=== PATIENT | male | born 1945 | race American Indian/Alaskan Native ===

== ENCOUNTER 2019-03-04 12:51 | Inpatient (IN) | payer MEDICARE ==
[2019-02-25 13:14] LABS: Basophils % (Auto) 0.6 % (0.0-1.8); Eosinophils # (Auto) 0.3 K/mm3 (0.0-0.4); Hematocrit 42.8 % (35.5-45.6); Hemoglobin 14.2 gm/dl (11.8-15.2); Lymphocytes # (Auto) 1.2 K/mm3 (1.2-5.4); Lymphocytes % (Auto) 23.1 % (13.4-35.0); Mean Corpuscular HGB Conc 33 % (32-34); Mean Corpuscular Volume 86 fl (84-94); Monocytes # (Auto) 0.5 K/mm3 (0.0-0.8); Monocytes % (Auto) 9.6 % (0.0-7.3); Platelet Count 220 K/mm3 (140-440); Red Blood Count 4.97 M/mm3 (3.65-5.03); Red Cell Distribution Width 14.1 % (13.2-15.2)
[2019-02-25 13:23] LABS: INR 1.09 (0.87-1.13)
[2019-02-25 13:24] LABS: Partial Thromboplastin Time 28.6 Sec. (24.2-36.6)
[2019-02-25 13:28] LABS: Alanine Aminotransferase 13 units/L (7-56); Albumin 3.6 g/dL (3.9-5); BUN/Creatinine Ratio 16; Blood Urea Nitrogen 16 mg/dL (9-20); Calcium 8.4 mg/dL (8.4-10.2); Hemolysis Index 33
--- NOTE | 2019-02-25 13:42 | Anesthesia Consultation ---
Anesthesia Consult and Med Hx Date of service: 03/04/19 - Airway Anesthetic Teeth Evaluation: Good ROM Head & Neck: Inadequate (limited neck extension) Mental/Hyoid Distance: Adequate Mallampati Class: Class I Intubation Access Assessment: Possibly Difficult - Pulmonary Exam CTA: Yes - Cardiac Exam Cardiac Exam: RRR - Pre-Operative Health Status ASA Pre-Surgery Classification: ASA2 Proposed Anesthetic Plan: General - Pulmonary Hx Smoking: Yes (former smoker) Hx Respiratory Symptoms: No Hx Sleep Apnea: No (COBY PRE SCREEN LOW RISK) - Cardiovascular System Hx Hypertension: No Hx Heart Attack/AMI: No Hx Percutaneous Transluminal Coronary Angioplasty (PTCA): No - Central Nervous System CVA: No - Gastrointestinal Hx Gastroesophageal Reflux Disease: No - Endocrine Hx Renal Disease: No Hx Liver Disease: No Hx Insulin Dependent Diabetes: No Hx Non-Insulin Dependent Diabetes: No Hx Thyroid Disease: No - Hematic Hx Anemia: No - Other Systems Hx Obesity: Yes - Additional Comments Anesthesia Medical History Comments: No hx anesthetic complications.
[~2019-03-04 12:51] MED LIST: LACTATED RINGERS 1,000 ML IV SCH; ceFAZolin/STERILE WATER 2 GM/20 ML SYRINGE IV NR
[2019-03-04] MEDS ORDERED: ONDANSETRON 4 MG/2 ML INJ IV PRN ×2 (13:40→16:04)
--- NOTE | 2019-03-04 13:41 | Anesthesia Day of Surgery ---
Anesthesia Day of Surgery - Day of Surgery Patient Examined: Yes Patient H&P Reviewed: Yes Patient is NPO: Yes
[2019-03-04] MEDS ORDERED: LIDOCAINE PF 100 MG/5 ML (CARDIAC SYRINGE) IV ONE (14:55)
[2019-03-04] MEDS ORDERED: fentaNYL 100 MCG/2 ML INJ ONE ×2 (14:56→17:00)
[2019-03-04] MEDS ORDERED: PROPOFOL 200 MG/20 ML VIAL IV ONE (14:56)
[2019-03-04] MEDS ORDERED: MIDAZOLAM 2 MG/2 ML INJ ONE (14:56)
[2019-03-04] MEDS ORDERED: SODIUM CHLORIDE 0.9% IRRIG SOLN 3000 ML IR ONE ×2 (15:23)
[2019-03-04] MEDS ORDERED: HYDROcodone/ACETAMINOPHEN 5-325 MG TAB PO PRN (16:04)
[2019-03-04] MEDS ORDERED: NALOXONE 0.4 MG/1 ML INJ IV PRN (16:04)
[2019-03-04] MEDS ORDERED: ZOLPIDEM 5 MG TAB PO PRN (16:04)
--- NOTE | 2019-03-04 16:04 | Short Stay Summary ---
Short Stay Documentation Date of service: 02/25/19 - History H&P: obtained from office - Allergies and Medications Current Medications: Allergies No Known Allergies Allergy (Verified 02/19/19 14:21) Home Medications Medication Instructions Recorded Confirmed Last Taken Type Finasteride [Proscar] 5 mg PO DAILY 02/19/19 02/19/19 03/03/19 18:00 History Tamsulosin [Flomax] 0.4 mg PO QDAY 02/19/19 02/19/19 03/03/19 18:00 History Active Medications Cefazolin Sodium (Ancef/Sterile Water 2 Gm/20 Ml) 2 gm IV PREOP NR Stop: 03/04/19 23:02 Fentanyl (Sublimaze) 50 mcg IV Q5MIN PRN PRN Reason: Pain , Severe (7-10) Stop: 03/04/19 23:59 Lactated Ringer's (Lactated Ringers) 1,000 mls @ 100 mls/hr IV DIRECT DESTIN Last Admin: 03/04/19 14:00 Dose: 100 mls/hr Documented by: Ondansetron HCl (Zofran) 4 mg IV ONCE PRN PRN Reason: Nausea And Vomiting - Brief post op/procedure progress note Date of procedure: 03/04/19 Pre-op diagnosis: bph, retention, elevated PSA Post-op diagnosis: same Procedure: cysto, TURP, digital guided transrectal prostate bx Anesthesia: GETA Surgeon: MORENITA FIGUEROA Estimated blood loss: 50-100ml Pathology: list (prostate chips / prostate cores) Specimen disposition: to lab Condition: stable - Hospital course Hospital course: bactrm & norco on chart - Disposition Condition at discharge: Stable Disposition: DC-01 TO HOME OR SELFCARE Short Stay Discharge Plan Follow up with: PRIMARY CARE, [Primary Care Provider] - 7 Days
[2019-03-04] MEDS: fentaNYL 100 MCG/2 ML INJ IV PRN ×3 (16:30→16:55)
[2019-03-04] MEDS ORDERED: ceFAZolin/NS 1 GM/50 ML 1 GM/50 ML BAG IV SCH (17:00)
[2019-03-04] MEDS ORDERED: SODIUM CHLORIDE IRRI 2000 ML 4,000 ML ONE (17:29)
[2019-03-04] MEDS: MORPHINE 2 MG/1 ML INJ IV PRN (20:09)
--- NOTE | 2019-03-04 21:09 | Post Anesthesia Evaluation ---
- Post Anesthesia Evaluation Patient Participated: Yes Airway Patent: Yes Stable Respiratory Function: Yes Nausea/Vomiting: No Temp > 96.8F: Yes Pain Manageable: Yes Adequeate Hydration: Yes Anesthesia Complications: No Block Receding Appropriately: Not Applicable Patient on Ventilator: No
[2019-03-04] MEDS: ceFAZolin/NS 1 GM/50 ML 1 GM/50 ML BAG IV SCH (22:00)
[2019-03-05 05:18] LABS: Basophils % (Auto) 0.5 % (0.0-1.8); Eosinophils # (Auto) 0.2 K/mm3 (0.0-0.4); Eosinophils % (Auto) 2.7 % (0.0-4.3); Hematocrit 36.4 % (35.5-45.6); Hemoglobin 11.9 gm/dl (11.8-15.2); Lymphocytes # (Auto) 1.6 K/mm3 (1.2-5.4); Lymphocytes % (Auto) 17.9 % (13.4-35.0); Mean Corpuscular HGB Conc 33 % (32-34); Mean Corpuscular Volume 85 fl (84-94); Monocytes # (Auto) 1.1 K/mm3 (0.0-0.8); Platelet Count 216 K/mm3 (140-440); Red Blood Count 4.28 M/mm3 (3.65-5.03); Red Cell Distribution Width 13.7 % (13.2-15.2)
[2019-03-05 05:31] LABS: BUN/Creatinine Ratio 15; Blood Urea Nitrogen 15 mg/dL (9-20); Calcium 7.9 mg/dL (8.4-10.2); Hemolysis Index 2
[2019-03-05] MEDS: ceFAZolin/NS 1 GM/50 ML 1 GM/50 ML BAG IV SCH (05:48)
[2019-03-05] MEDS: FINASTERIDE 5 MG TAB PO SCH (09:45)
[2019-03-05] MEDS: TAMSULOSIN 0.4 MG CAP PO SCH (09:45)
[2019-03-05] MEDS: SODIUM CHLORIDE 0.9% IRRIG SOLN 2000 ML IR SCH ×8 (09:48→21:06)
--- NOTE | 2019-03-05 11:42 | Progress Note ---
Assessment and Plan irwin min tinged needs to get oob irrigate cath observe Subjective Date of service: 03/05/19 Objective - Constitutional Vitals: Vital Signs - 12hr 03/05/19 03/05/19 03/05/19 04:27 07:08 11:26 Temperature 99.3 F 98.4 F 98.9 F Pulse Rate 83 76 80 Respiratory 18 18 18 Rate Blood Pressure 108/55 111/62 Blood Pressure 121/77 [Right] O2 Sat by Pulse 98 99 99 Oximetry General appearance: Present: no acute distress Extremities: no ischemia - Gastrointestinal General gastrointestinal: Present: soft - Labs CBC & Chem 7: 03/05/19 04:16 03/05/19 04:16 Labs: Abnormal lab results 03/05/19 03/05/19 Range/Units 04:16 04:16 [place] % (Auto) 12.0 H (0.0-7.3) % [place] # 1.1 H (0.0-0.8) K/mm3 Glucose 105 H (75-100) mg/dL Calcium 7.9 L (8.4-10.2) mg/dL Medications & Allergies - Medications Allergies/Adverse Reactions: Allergies No Known Allergies Allergy (Verified 02/19/19 14:21) Home Medications: Home Medications Medication Instructions Recorded Confirmed Last Taken Type Finasteride [Proscar] 5 mg PO DAILY 02/19/19 02/19/19 03/03/19 18:00 History Tamsulosin [Flomax] 0.4 mg PO QDAY 02/19/19 02/19/19 03/03/19 18:00 History Active Medications: Generic Name Dose Route Start Last Admin Trade Name Gautam PRN Reason Stop Dose Admin Acetaminophen/Hydrocodone Bitart 2 each 03/04/19 16:04 [place] 5/325 PO Q4H PRN Pain, Moderate (4-6) Finasteride 5 mg 03/05/19 10:00 03/05/19 09:45 Proscar PO 5 mg DAILY DESTIN Administration Lactated Ringer's 1,000 mls @ 100 mls/hr 03/04/19 06:00 03/04/19 14:00 Lactated Ringers IV 100 mls/hr DIRECT DESTIN Administration Lactated Ringer's 1,000 mls @ 125 mls/hr 03/04/19 17:00 Lactated Ringers IV DIRECT DESTIN Morphine Sulfate 2 mg 09/18/19 16:04 03/04/19 20:09 Morphine IV 2 mg Q4H PRN Administration Pain, Moderate (4-6) Naloxone HCl 0.1 mg 03/04/19 16:04 Narcan 0.4 Mg/1 Ml IV Q2MIN PRN Res Rate </= 8 or 02 SAT < 92% Ondansetron HCl 4 mg 03/04/19 13:40 Zofran IV ONCE PRN Nausea And Vomiting Ondansetron HCl 4 mg 03/04/19 16:04 Zofran IV Q8H PRN Nausea And Vomiting Sodium Chloride 2,000 ml 03/04/19 17:00 03/05/19 09:49 Nacl 0.9% IR 2,000 ml DIRECT DESTIN Administration Tamsulosin HCl 0.4 mg 03/05/19 10:00 03/05/19 09:45 Flomax PO 0.4 mg QDAY DESTIN Administration Zolpidem Tartrate 5 mg 03/04/19 16:04 Ambien PO QHS PRN Sleep
[2019-03-05] MEDS ORDERED: SODIUM CHLORIDE IRRI 1000 ML 1,000 ML IR ONE (11:59)
[2019-03-05] MEDS: MORPHINE 2 MG/1 ML INJ IV PRN (12:44)
[2019-03-05] MEDS: LACTATED RINGERS 1,000 ML IV SCH (20:50)
[2019-03-06] MEDS: SODIUM CHLORIDE 0.9% IRRIG SOLN 2000 ML IR SCH ×6 (00:02→06:41)
[2019-03-06] MEDS: LACTATED RINGERS 1,000 ML IV SCH (06:07)
[2019-03-06 10:31] VITALS: BP 107/65
[2019-03-06] MEDS: FINASTERIDE 5 MG TAB PO SCH (10:36)
[2019-03-06] MEDS: TAMSULOSIN 0.4 MG CAP PO SCH (10:36)
--- NOTE | 2019-03-06 12:56 | Discharge Summary ---
Providers - Providers Date of Admission: 03/05/19 16:13 Date of discharge: 03/06/19 Attending physician: MORENITA RAMOS Primary care physician: RM TSAI Hospitalization Condition: Stable Procedures: TURP Hospital course: TURP----Dr. Ramos post hematuria & pain-----monitored better at bedside Disposition: DC-01 TO HOME OR SELFCARE Core Measure Documentation - Palliative Care Palliative Care/ Comfort Measures: Not Applicable - Core Measures Any of the following diagnoses?: none - VTE Discharge Requirements Deep Vein Thrombosis/Pulmonary Embolism Present on Admission: No Has pt received <5 days of overlap therapy or INR<2.0: No Anticoagulant overlap therapy prescribed at discharge: No Contraindication No Overlap Therapy order at DC: Medical Contraindication - Acute [place] Discharge Requirements Aspirin at discharge: No Reason for no aspirin on DC: Surgical contraindication JUAN/ARB for LVSD if EF <40%: No Reason for no JUAN/ARB: Medical contraindication Beta efren at discharge: No Reason for no beta efren on DC: Medical contraindication Statin for LDL = or >100 mg/dl on DC: Not Applicable Reason for no statin on DC: Surgical contraindication - Heart Failure Discharge Requirements JUAN/ARB for LVSD if EF <40%: Not Applicable Reason for no JUAN/ARB: Medical contraindication Beta efren at discharge: No Reason for no beta efren on DC: Medical contraindication - Stroke Discharge Requirements Statin for LDL = or >70 mg/dl on DC: Not Applicable Reason for no statin on DC: Medical Contraindication Anticoag for atrial fib/atrial flutter: Not Applicable Reason for no anticoag for AF/F on DC: Medical Contraindication Antithrombotic for ischemic stroke: No Reason for no antithrombotic on DC: Medical Contraindication Exam - Constitutional Vitals: Temp Pulse Resp BP Pulse Ox 99.0 F 98 H 18 107/65 98 03/06/19 10:26 03/06/19 10:26 03/06/19 10:26 03/06/19 10:26 03/06/19 10:26 General appearance: Present: no acute distress, well-nourished - EENT Eyes: Present: PERRL ENT: hearing intact, clear oral mucosa - Neck Neck: Present: supple, normal ROM - Respiratory Respiratory effort: normal Respiratory: bilateral: CTA - Cardiovascular Heart Sounds: Present: S1 & S2. Absent: rub, click - Extremities Extremities: pulses symmetrical, No edema Peripheral Pulses: within normal limits - Abdominal General gastrointestinal: Present: soft, non-tender, non-distended, normal bowel sounds Male genitourinary: Present: normal - Integumentary Integumentary: Present: clear, warm, dry - Musculoskeletal Musculoskeletal: gait normal, strength equal bilaterally - Psychiatric Psychiatric: appropriate mood/affect, intact judgment & insight - Neurologic Neurologic: CNII-XII intact, moves all extremities Plan Activity: no restrictions Diet: regular Follow up with: PRIMARY CARE, [Referring] - 7 Days
--- NOTE | 2019-03-16 12:36 | Operative Report ---
PREOPERATIVE DIAGNOSES: Benign prostatic hypertrophy, urinary retention. POSTOPERATIVE DIAGNOSES: Benign prostatic hypertrophy, urinary retention and elevated PSA. PROCEDURE: Cystoscopy, bilateral retrograde pyelograms, transurethral resection of the prostate. SURGEON: Karl Ramos MD ANESTHESIA: General. ESTIMATED BLOOD LOSS: Minimal. FLUIDS: Crystalloid. COMPLICATIONS: No complications. INDICATIONS: This patient is a 73-year-old gentleman known to my office for urinary retention. [place] He had previous prostate biopsy in the past, developed urinary retention, failed voiding trial in the office and presents now for surgical intervention. DESCRIPTION OF PROCEDURE: The patient was taken to the operative suite, placed in the supine position. After adequate general anesthesia, placed in the dorsal lithotomy position, prepped and draped in a sterile fashion. Pancystourethroscopy was performed with 22-Tajik Storz cystoscope, no urethral abnormalities. His prostate displayed trilobar obstruction. Bladder, no tumors or stones were noted. Bilateral retrograde pyelograms were obtained with an 8-Tajik Braden catheter and 8 mL of contrast. No filling defects or obstruction. Next, using a 24-Tajik resectoscope in loop with the cutting and coag 160 and 60 transurethral resection of the prostate was performed in a systematic fashion, taken down the median lobe, right and left lateral lobes. Chips were evacuated out with the Celletra evacuator. Also, he was noted to have elevated PSA. Therefore, digital-guided transrectal biopsies were obtained and sent for routine pathologic evaluation. A 23-Tajik 3-way catheter to Maciel's drip was placed, irrigated well, no chips. He was extubated and taken to recovery room in stable condition. JOB# [id number] [facility]
== END 2019-03-06 15:00 | disposition home or self-care (01) | DRG 714 ==
LOC: OR 12:51 → 3B-SURG 16:04 → OBSVTOIN 03-05 16:13
PROVIDERS: ADMIT Urology; ATTEND Urology
PROC: 0VT08ZZ Resection of Prostate, Via Natural or Artificial Opening Endoscopic (ICD-10-PCS; principal; 2019-03-04)
PROC: 0TJB8ZZ Inspection of Bladder, Via Natural or Artificial Opening Endoscopic (ICD-10-PCS; 2019-03-04)
PROC: 0VB08ZX Excision of Prostate, Via Natural or Artificial Opening Endoscopic, Diagnostic (ICD-10-PCS; 2019-03-04)
DX: N40.1 Benign prostatic hyperplasia with lower urinary tract symptoms (principal); R33.8 Other retention of urine; N52.9 Male erectile dysfunction, unspecified; I10 Essential (primary) hypertension; E66.9 Obesity, unspecified; Z87.891 Personal history of nicotine dependence; Z68.32 Body mass index [BMI] 32.0-32.9, adult; Z71.3 Dietary counseling and surveillance
CPT/HCPCS: 36415; 80048; 80053; 85025; 85610; 85730; 86850; 86900; 86901; 88305; G0378; A4217; J0690; J2001; J2250; J2270; J2704; J3010; J7120

== ENCOUNTER 2019-03-09 17:01 | Inpatient (IN) | payer MEDICARE ==
[2019-03-09] MEDS ORDERED: SODIUM CHLORIDE 0.9% 500 ML 500 ML IV ONE (17:22)
--- NOTE | 2019-03-09 17:32 | Event Note ---
ED Screening Note ED Screening Note: pt had a TURP on 03/[address] Ramos had his flaherty catheter removed today began to have tremors and fever once he returned home today This initial assessment/diagnostic orders/clinical plan/treatment(s) is/are subject to change based on patients health status, clinical progression and re- assessment by fellow clinical providers in the ED. Further treatment and workup at subsequent clinical providers discretion. Patient/guardian urged not to elope from the ED as their condition may be serious if not clinically assessed and managed. Initial orders include: sepsis protocol initiated in triage, febrile and tachycardia SENT TO MAIN
[2019-03-09 18:03] LABS: Hemoglobin 11.9 gm/dl (11.8-15.2); Mean Corpuscular HGB Conc 33 % (32-34); Mean Corpuscular Volume 86 fl (84-94); Platelet Count 258 K/mm3 (140-440); Red Blood Count 4.19 M/mm3 (3.65-5.03); Red Cell Distribution Width 14.1 % (13.2-15.2)
--- NOTE | 2019-03-09 18:10 | XRay Report ---
CHEST 1 VIEW INDICATION: possible Sepsis COMPARISON: None FINDINGS: Support devices: None Heart: Normal Lungs/Pleura: No acute pulmonary or pleural findings. IMPRESSION: 1. No acute disease. Signer Name: Jamir Mar MD Signed: 03/09/2019 6:06 PM Workstation Name: [id number]
[2019-03-09 18:21] LABS: Alanine Aminotransferase 13 units/L (7-56); Albumin 3.2 g/dL (3.9-5); BUN/Creatinine Ratio 12; Blood Urea Nitrogen 14 mg/dL (9-20); Calcium 8.2 mg/dL (8.4-10.2); Hemolysis Index 39
[2019-03-09 18:37] LABS: INR 1.08 (0.87-1.13)
[2019-03-09] MEDS ORDERED: SODIUM CHLORIDE 0.9% 1000 ML 1,000 ML IV ONE ×2 (18:46→21:23)
[2019-03-09] MEDS ORDERED: cefTRIAXone/NS 1 GM/50 ML 1 GM/50 ML BAG IV ONE (18:46)
[2019-03-09] MEDS ORDERED: ACETAMINOPHEN 325 MG TAB PO ONE (18:47)
[2019-03-09 18:49] LABS: Basophils % (Manual) 0 % (0.0-1.8); Eosinophils % (Manual) 0 % (0.0-4.3); Large Platelets 1+; RBC Morphology Normal; Total Cells Counted 100
[2019-03-09 18:50] LABS: Platelet Estimate Consistent w Auto
--- NOTE | 2019-03-09 19:05 | Emergency Department Report ---
ED Fever HPI - General Chief Complaint: Fever Stated Complaint: HIGH TEMP/SHAKING Time Seen by Provider: 03/09/19 17:31 Source: patient, family Exam Limitations: no limitations - History of Present Illness Initial Comments: 73-year-old male presents to the hospital with his at the bedside complaining of fever and chills/Rigors times one day. Patient has a history of BPH and recently had a TURP procedure done and was discharged from the hospital 2 days ago. Patient was discharged on unknown antibiotic twice a day. It appears that patient was treated with Bactrim and [place] while in the hospital. Last dose of antibiotic this morning. Patient follow-up in the office and have his Rueda removed by Dr. Ramos. Patient states he urinated out half the volume that was placed in the Rueda catheter prior to removal. Patient has had 2 episodes of urination today since Rueda catheter has been removed. He denies any pain or suprapubic pressure. Patient denies nausea, vomiting, diarrhea, or cough. ED Review of Systems ROS: Stated complaint: HIGH TEMP/SHAKING Other details as noted in HPI Comment: All other systems reviewed and negative ED Past Medical Hx - Past Medical History Hx Hypertension: No Hx Heart Attack/AMI: No Hx Liver Disease: No Hx Renal Disease: No Hx Tuberculosis: Yes (POSITIVE SKIN TEST,NO TX,NEG CXR 10 YRS AGO) Hx HIV: No - Social History Smoking Status: Unknown if ever smoked Substance Use Type: None - Medications Home Medications: Home Medications Medication Instructions Recorded Confirmed Last Taken Type Finasteride [Proscar] 5 mg PO DAILY 02/19/19 02/19/19 03/03/19 18:00 History Tamsulosin [Flomax] 0.4 mg PO QDAY 02/19/19 02/19/19 03/03/19 18:00 History ED Physical Exam - General Limitations: No Limitations - Other Other exam information: Gen.: No acute distress Head: Atraumatic Eyes: Normal appearance ENT: Moist mucous membranes Neck: Normal appearance, no posterior midline tenderness, no meningismus Chest: Clear to auscultation bilaterally Cardiovascular: Tachycardic regular rhythm Abdomen: Normal appearance, soft, nontender, no rebound or guarding, normal bowel sounds : Uncircumcised, no testicular or epididymis tenderness on exam. Back: Normal appearance, nontender Extremity: Full range of motion, normal appearance Neuro: Alert, clear speech, no focal motor or sensory deficit Psychiatric: Appropriate Skin: No rash ED Course Vital Signs 03/09/19 03/09/19 03/09/19 17:23 17:31 18:31 Temperature 100.6 F H 100.6 F H Pulse Rate 132 H 132 H Respiratory 18 18 17 Rate Blood Pressure 101/58 Blood Pressure 101/58 [Right] O2 Sat by Pulse 96 96 Oximetry 03/09/19 03/09/19 03/09/19 18:45 19:01 19:15 Temperature Pulse Rate 122 H 123 H 126 H Respiratory 16 21 14 Rate Blood Pressure 115/60 115/60 115/60 Blood Pressure [Right] O2 Sat by Pulse 99 98 97 Oximetry 03/09/19 03/09/19 03/09/19 19:31 19:45 20:01 Temperature Pulse Rate 122 H 120 H 119 H Respiratory 17 18 14 Rate Blood Pressure 115/60 115/60 115/60 Blood Pressure [Right] O2 Sat by Pulse 98 96 95 Oximetry 03/09/19 03/09/19 03/09/19 20:15 20:30 20:45 Temperature Pulse Rate 121 H 115 H 114 H Respiratory 18 21 20 Rate Blood Pressure 115/60 103/51 103/51 Blood Pressure [Right] O2 Sat by Pulse 94 94 96 Oximetry 03/09/19 03/09/19 03/09/19 21:00 21:15 21:31 Temperature Pulse Rate 111 H 109 H 110 H Respiratory 20 20 17 Rate Blood Pressure 98/50 98/50 100/57 Blood Pressure [Right] O2 Sat by Pulse 95 96 98 Oximetry 03/09/19 21:38 Temperature 99.0 F Pulse Rate Respiratory Rate Blood Pressure Blood Pressure [Right] O2 Sat by Pulse Oximetry - Reevaluation(s) Reevaluation #1: 03/09/19 21:26 Patient received Rocephin, Tylenol, and normal saline. Patient was able to produce urine in the ED. After 1 L normal saline and fever reduction to 99 patient's heart rate 110 with a blood pressure of 98/50. - Consultations Consultation #1: 03/09/19 21:[address] Pollock urology callback case was d/w DR Pollock and pt will be admitted. ED Medical Decision Making - Lab Data Result diagrams: 03/09/19 17:26 03/09/19 17:26 Lab Results 03/09/19 03/09/19 03/09/19 Range/Units 17:26 17:26 17:26 WBC 9.0 (4.5-11.0) K/mm3 RBC 4.19 (3.65-5.03) M/mm3 Hgb 11.9 (11.8-15.2) gm/dl Hct 36.0 (35.5-45.6) % MCV 86 (84-94) fl MCH 29 (28-32) pg MCHC 33 (32-34) % RDW 14.1 (13.2-15.2) % Plt Count 258 (140-440) K/mm3 Add Manual Diff Complete Total Counted 100 Seg Neutrophils % Resource Efficiency Manager Seg Neuts % (Manual) 94.0 H (40.0-70.0) % Band Neutrophils % 0 % Lymphocytes % (Manual) 5.0 L (13.4-35.0) % Reactive Lymphs % (Man) 0 % Monocytes % (Manual) 1.0 (0.0-7.3) % Eosinophils % (Manual) 0 (0.0-4.3) % Basophils % (Manual) 0 (0.0-1.8) % Metamyelocytes % 0 % Myelocytes % 0 % Promyelocytes % 0 % Blast Cells % 0 % Nucleated RBC % Not Reportable Seg Neutrophils # Man 8.5 H (1.8-7.7) K/mm3 Band Neutrophils # 0.0 K/mm3 Lymphocytes # (Manual) 0.5 L (1.2-5.4) K/mm3 Abs React Lymphs (Man) 0.0 K/mm3 Monocytes # (Manual) 0.1 (0.0-0.8) K/mm3 Eosinophils # (Manual) 0.0 (0.0-0.4) K/mm3 Basophils # (Manual) 0.0 (0.0-0.1) K/mm3 Metamyelocytes # 0.0 K/mm3 Myelocytes # 0.0 K/mm3 Promyelocytes # 0.0 K/mm3 Blast Cells # 0.0 K/mm3 WBC Morphology Not Reportable Hypersegmented Neuts Not Reportable Hyposegmented Neuts Not Reportable Hypogranular Neuts Not Reportable Smudge Cells Not Reportable Toxic Granulation Not Reportable Toxic Vacuolation Not Reportable Dohle Bodies Not Reportable Pelger-Huet Anomaly Not Reportable Suresh Rods Not Reportable Platelet Estimate Consistent w auto Clumped Platelets Not Reportable Plt Clumps, EDTA Not Reportable Large Platelets 1+ Giant Platelets Not Reportable Platelet Satelliting Not Reportable Plt Morphology Comment Not Reportable RBC Morphology Normal Dimorphic RBCs Not Reportable Polychromasia Not Reportable Hypochromasia Not Reportable Poikilocytosis Not Reportable Anisocytosis Not Reportable Microcytosis Not Reportable Macrocytosis Not Reportable Spherocytes Not Reportable Pappenheimer Bodies Not Reportable Sickle Cells Not Reportable Target Cells Not Reportable Tear Drop Cells Not Reportable Ovalocytes Not Reportable Helmet Cells Not Reportable Hunter-Britton Bodies Not Reportable Mcallen Rings Not Reportable Killen Cells Not Reportable Bite Cells Not Reportable Crenated Cell Not Reportable Elliptocytes Not Reportable Acanthocytes (Spur) Not Reportable Rouleaux Not Reportable Hemoglobin C Crystals Not Reportable Schistocytes Not Reportable Malaria parasites Not Reportable Ming Bodies Not Reportable Hem Pathologist Commnt No PT 13.7 (12.2-14.9) Sec. INR 1.08 (0.87-1.13) VBG pH (7.320-7.420) Sodium 133 L (137-145) mmol/L Potassium 4.8 (3.6-5.0) mmol/L Chloride 101.1 (98-107) mmol/L Carbon Dioxide 22 (22-30) mmol/L Anion Gap 15 mmol/L BUN 14 (9-20) mg/dL Creatinine 1.2 (0.8-1.5) mg/dL Estimated GFR > 60 ml/min BUN/Creatinine Ratio 12 % Glucose 95 (75-100) mg/dL Lactic Acid (0.7-2.0) mmol/L Calcium 8.2 L (8.4-10.2) mg/dL Total Bilirubin 0.30 (0.1-1.2) mg/dL AST 23 (5-40) units/L ALT 13 (7-56) units/L Alkaline Phosphatase 54 (35-129) units/L Total Protein 6.9 (6.3-8.2) g/dL Albumin 3.2 L (3.9-5) g/dL Albumin/Globulin Ratio 0.9 % Urine Color (Yellow) Urine Turbidity (Clear) Urine pH (5.0-7.0) Ur Specific [place] (1.003-1.030) Urine Protein (Negative) mg/dL Urine Glucose (UA) (Negative) mg/dL Urine Ketones (Negative) mg/dL Urine Blood (Negative) Urine Nitrite (Negative) Urine Bilirubin (Negative) Urine Urobilinogen (<2.0) mg/dL Ur Leukocyte Esterase (Negative) Urine WBC (Auto) (0.0-6.0) /HPF Urine RBC (Auto) (0.0-6.0) /HPF 03/09/19 03/09/19 03/09/19 Range/Units 17:26 17:26 19:30 WBC (4.5-11.0) K/mm3 RBC (3.65-5.03) M/mm3 Hgb (11.8-15.2) gm/dl Hct (35.5-45.6) % MCV (84-94) fl MCH (28-32) pg MCHC (32-34) % RDW (13.2-15.2) % Plt Count (140-440) K/mm3 Add Manual Diff Total Counted Seg Neutrophils % Seg Neuts % (Manual) (40.0-70.0) % Band Neutrophils % % Lymphocytes % (Manual) (13.4-35.0) % Reactive Lymphs % (Man) % Monocytes % (Manual) (0.0-7.3) % Eosinophils % (Manual) (0.0-4.3) % Basophils % (Manual) (0.0-1.8) % Metamyelocytes % % Myelocytes % % Promyelocytes % % Blast Cells % % Nucleated RBC % Seg Neutrophils # Man (1.8-7.7) K/mm3 Band Neutrophils # K/mm3 Lymphocytes # (Manual) (1.2-5.4) K/mm3 Abs React Lymphs (Man) K/mm3 Monocytes # (Manual) (0.0-0.8) K/mm3 Eosinophils # (Manual) (0.0-0.4) K/mm3 Basophils # (Manual) (0.0-0.1) K/mm3 Metamyelocytes # K/mm3 Myelocytes # K/mm3 Promyelocytes # K/mm3 Blast Cells # K/mm3 WBC Morphology Hypersegmented Neuts Hyposegmented Neuts Hypogranular Neuts Smudge Cells Toxic Granulation Toxic Vacuolation Dohle Bodies Pelger-Huet Anomaly Suresh Rods Platelet Estimate Clumped Platelets Plt Clumps, EDTA Large Platelets Giant Platelets Platelet Satelliting Plt Morphology Comment RBC Morphology Dimorphic RBCs Polychromasia Hypochromasia Poikilocytosis Anisocytosis Microcytosis Macrocytosis Spherocytes Pappenheimer Bodies Sickle Cells Target Cells Tear Drop Cells Ovalocytes Helmet Cells Hunter-Britton Bodies Mcallen Rings Abena Cells Bite Cells Crenated Cell Elliptocytes Acanthocytes (Spur) Rouleaux Hemoglobin C Crystals Schistocytes Malaria parasites Ming Bodies Hem Pathologist Commnt PT (12.2-14.9) Sec. INR (0.87-1.13) VBG pH 7.419 (7.320-7.420) Sodium (137-145) mmol/L Potassium (3.6-5.0) mmol/L Chloride (98-107) mmol/L Carbon Dioxide (22-30) mmol/L Anion Gap mmol/L BUN (9-20) mg/dL Creatinine (0.8-1.5) mg/dL Estimated GFR ml/min BUN/Creatinine Ratio % Glucose (75-100) mg/dL Lactic Acid 2.20 H* 1.70 (0.7-2.0) mmol/L Calcium (8.4-10.2) mg/dL Total Bilirubin (0.1-1.2) mg/dL AST (5-40) units/L ALT (7-56) units/L Alkaline Phosphatase (35-129) units/L Total Protein (6.3-8.2) g/dL Albumin (3.9-5) g/dL Albumin/Globulin Ratio % Urine Color (Yellow) Urine Turbidity (Clear) Urine pH (5.0-7.0) Ur Specific [place] (1.003-1.030) Urine Protein (Negative) mg/dL Urine Glucose (UA) (Negative) mg/dL Urine Ketones (Negative) mg/dL Urine Blood (Negative) Urine Nitrite (Negative) Urine Bilirubin (Negative) Urine Urobilinogen (<2.0) mg/dL Ur Leukocyte Esterase (Negative) Urine WBC (Auto) (0.0-6.0) /HPF Urine RBC (Auto) (0.0-6.0) /HPF 03/09/19 03/09/19 Range/Units 19:41 20:00 WBC (4.5-11.0) K/mm3 RBC (3.65-5.03) M/mm3 Hgb (11.8-15.2) gm/dl Hct (35.5-45.6) % MCV (84-94) fl MCH (28-32) pg MCHC (32-34) % RDW (13.2-15.2) % Plt Count (140-440) K/mm3 Add Manual Diff Total Counted Seg Neutrophils % Seg Neuts % (Manual) (40.0-70.0) % Band Neutrophils % % Lymphocytes % (Manual) (13.4-35.0) % Reactive Lymphs % (Man) % Monocytes % (Manual) (0.0-7.3) % Eosinophils % (Manual) (0.0-4.3) % Basophils % (Manual) (0.0-1.8) % Metamyelocytes % % Myelocytes % % Promyelocytes % % Blast Cells % % Nucleated RBC % Seg Neutrophils # Man (1.8-7.7) K/mm3 Band Neutrophils # K/mm3 Lymphocytes # (Manual) (1.2-5.4) K/mm3 Abs React Lymphs (Man) K/mm3 Monocytes # (Manual) (0.0-0.8) K/mm3 Eosinophils # (Manual) (0.0-0.4) K/mm3 Basophils # (Manual) (0.0-0.1) K/mm3 Metamyelocytes # K/mm3 Myelocytes # K/mm3 Promyelocytes # K/mm3 Blast Cells # K/mm3 WBC Morphology Hypersegmented Neuts Hyposegmented Neuts Hypogranular Neuts Smudge Cells Toxic Granulation Toxic Vacuolation Dohle Bodies Pelger-Huet Anomaly Suresh Rods Platelet Estimate Clumped Platelets Plt Clumps, EDTA Large Platelets Giant Platelets Platelet Satelliting Plt Morphology Comment RBC Morphology Dimorphic RBCs Polychromasia Hypochromasia Poikilocytosis Anisocytosis Microcytosis Macrocytosis Spherocytes Pappenheimer Bodies Sickle Cells Target Cells Tear Drop Cells Ovalocytes Helmet Cells Hunter-Britton Bodies Mcallen Rings Killen Cells Bite Cells Crenated Cell Elliptocytes Acanthocytes (Spur) Rouleaux Hemoglobin C Crystals Schistocytes Malaria parasites Ming Bodies Hem Pathologist Commnt PT (12.2-14.9) Sec. INR (0.87-1.13) VBG pH (7.320-7.420) Sodium (137-145) mmol/L Potassium (3.6-5.0) mmol/L Chloride (98-107) mmol/L Carbon Dioxide (22-30) mmol/L Anion Gap mmol/L BUN (9-20) mg/dL Creatinine (0.8-1.5) mg/dL Estimated GFR ml/min BUN/Creatinine Ratio % Glucose (75-100) mg/dL Lactic Acid 1.90 (0.7-2.0) mmol/L Calcium (8.4-10.2) mg/dL Total Bilirubin (0.1-1.2) mg/dL AST (5-40) units/L ALT (7-56) units/L Alkaline Phosphatase (35-129) units/L Total Protein (6.3-8.2) g/dL Albumin (3.9-5) g/dL Albumin/Globulin Ratio % Urine Color Red (Yellow) Urine Turbidity Cloudy (Clear) Urine pH 8.0 H (5.0-7.0) Ur Specific [place] 1.013 (1.003-1.030) Urine Protein 100 mg/dl (Negative) mg/dL Urine Glucose (UA) 50 (Negative) mg/dL Urine Ketones Tr (Negative) mg/dL Urine Blood Lg (Negative) Urine Nitrite Neg (Negative) Urine Bilirubin Neg (Negative) Urine Urobilinogen < 2.0 (<2.0) mg/dL Ur Leukocyte Esterase Mod (Negative) Urine WBC (Auto) 93.0 H (0.0-6.0) /HPF Urine RBC (Auto) > 182.0 (0.0-6.0) /HPF - EKG Data -: EKG Interpreted by Ri EKG shows normal: sinus rhythm, axis (qrs 20), QRS complexes (qrsd 111), ST-T waves (no stemi) Rate: tachycardia (122) - Radiology Data Radiology results: report reviewed (chest x-ray: No acute findings) - Medical Decision Making Patient has a UTI with persistent tachycardia despite ED treatment and borderline blood pressure. Case discussed with urology. Patient will be admitted tonight. Patient received Rocephin IV. Hospitalist and for for admission. - Differential Diagnosis UTI, sepsis, urinary obstruction Critical Care Time: No Critical care attestation.: If time is entered above; I have spent that time in minutes in the direct care of this critically ill patient, excluding procedure time. ED Disposition Clinical Impression: UTI (urinary tract infection), Status post recent transurethral resection of prostate, Fever Disposition: OP ADMIT IP TO THIS HOSP Is pt being admited?: Yes Condition: Stable Time of Disposition: 22:16
[2019-03-09 20:40] LABS: Bilirubin,Urine NEG (Negative); Blood,Urine LG (Negative); Color,Urine Red (Yellow); RBC,Urine > 182.0 /HPF (0.0-6.0); Urobilinogen,Urine < 2.0 mg/dL (<2.0)
[2019-03-09] MEDS ORDERED: ONDANSETRON 4 MG/2 ML INJ IV PRN (23:14)
[2019-03-10] MEDS ORDERED: PIPERACILLIN/TAZOBACTAM 3.375 3.375 GM/50 ML BAG IV SCH
[2019-03-10] MEDS: SODIUM CHLORIDE 0.9% 1000 ML 1,000 ML IV SCH ×3 (01:30→22:12)
[2019-03-10] MEDS ORDERED: HYDROcodone/ACETAMINOPHEN 7.5-325MG TAB PO PRN ×2 (02:00→06:00)
[2019-03-10] MEDS ORDERED: MORPHINE 2 MG/1 ML INJ IV PRN (04:36)
--- NOTE | 2019-03-10 04:52 | History and Physical Report ---
CHIEF COMPLAINT: Fever. HISTORY OF PRESENTING ILLNESS: The patient is a 73-year-old male who had a transurethral surgery (TURP)done about 5 days ago and was discharged about 2 days prior to presentation. The patient followed up with the urologist's office on 03/09/2019 and had his Rueda catheter removed and said he was able to urinate twice but started having fever and chills and called his urologist's office and was asked to come to the Emergency Room for admission to the hospital. There is no history of shortness of breath. There is no history of abdominal pain and no history of nausea and vomiting, or diarrhea. PAST MEDICAL HISTORY: Pertinent for tuberculosis in the past. PAST SURGICAL HISTORY: Unremarkable. FAMILY HISTORY: Noncontributory. SOCIAL HISTORY: The patient does not smoke, does not drink alcohol and does not use illicit drugs. MEDICATIONS: The patient is on Proscar 5 mg by mouth daily, tamsulosin 0.4 mg by mouth daily. ALLERGIES: There are no known drug allergies. REVIEW OF SYSTEMS: CONSTITUTIONAL: There is fever. There are chills but no diaphoresis. HEENT: There is no headache or sore throat. CARDIOVASCULAR SYSTEM: There is no chest pain or orthopnea. RESPIRATORY SYSTEM: There is no shortness of breath or cough. GASTROINTESTINAL SYSTEM: There is no nausea, no vomiting, no abdominal pain, diarrhea or constipation. NEUROLOGICAL SYSTEM: There is no numbness, no dizziness, no altered mental status. MUSCULOSKELETAL SYSTEM: There is no joint pain or swelling. DERMATOLOGICAL SYSTEM: There is no skin rash or itching. GENITOURINARY SYSTEM: There is no dysuria, but no hematuria and no flank pain. Rest of system review is normal. PHYSICAL EXAMINATION: GENERAL: At the time of exam, the patient was found to be alert, oriented x 3 and not in acute distress. VITAL SIGNS: At the initial time of presentation showed temperature of 100.6 degrees Fahrenheit, pulse of 132, respirations 18, blood pressure 101/58, O2 sat of 96% on room air. HEENT: Showed pupils to be equal, round, reactive to light and accommodating. Extraocular muscles are intact. NECK: Supple with no JVD or carotid bruit. CARDIOVASCULAR SYSTEM: Showed normal first and second heart sounds, with no gallops or murmurs. RESPIRATORY SYSTEM: Showed good air entry on both sides of the lungs, with no abnormal breath sounds. GASTROINTESTINAL SYSTEM: Showed abdomen to be full, soft, nontender with no organomegaly or rigidity. NEUROLOGIC: Showed no focal deficit. MUSCULOSKELETAL SYSTEM: Showed no joint swelling or tenderness. DERMATOLOGICAL SKIN: Showed no skin rash. GENITOURINARY SYSTEM: Showing no costovertebral angle tenderness. PERTINENT LABORATORY DATA AND IMAGING STUDIES: The patient had chest x-ray done that was unremarkable. The patient's lab results show CBC with normal white count, normal hemoglobin and normal hematocrit with CBC differential showing high-segmented neutrophil count of 94%. The patient's coagulation study was unremarkable. The patient's chemistry came back showing a slight decrease in sodium level of 133 with slight decrease in albumin level of 3.2 and slight decrease in calcium level of 8.2. The patient's urinalysis shows red color cloudy urine with high pH of 8 and moderately high lymphocyte esterase with high urine WBC of 93 and large amount of blood with trace ketones and large urine rbc of greater than 182. DIAGNOSES: 1. Sepsis. 2. Urinary tract infection. PLAN OF CARE: 1. The patient will be admitted to medical/surgical riddle on remote telemetry. 2. The patient will be on IV Zosyn 3.375 g q.8 hours and also IV Levaquin 750 mg daily. 3. The patient will be on IV normal saline running at 125 mL an hour, having received boluses in the Emergency Room. 4. The patient will be on IV Zofran 4 mg every 8 hours as needed for nausea and vomiting and will be on Tylenol 650 mg by mouth every 4 hours for fever and headache. 5 I.V morphine 2mg q3h prn pain. 6. The patient's diet will be regular diet. 7. The patient will continue Urology consult with Dr. Bonifacio Pollock requested by the Emergency Room physician. JOB# [id number] OCN/NTS PAULINED
[2019-03-10] MEDS: TAMSULOSIN 0.4 MG CAP PO SCH (09:42)
[2019-03-10] MEDS: FINASTERIDE 5 MG TAB PO SCH (09:42)
[2019-03-10] MEDS: PIPERACIL/TAZOBACTA 4.5/NS 100 4.5 GM/100 ML VIAL IV SCH ×2 (12:28→22:16)
--- NOTE | 2019-03-10 17:07 | Consultation ---
History of Present Illness - Reason for Consult Consult date: 03/10/19 - History of Present Illness 73-year-old male presents to the hospital with his at the bedside complaining of fever and chills/Rigors times one day. Patient has a history of BPH and recently had a TURP procedure done and was discharged from the hospital 2 days ago. Patient was discharged on Bactrim and Hector while in the hospital. Last dose of antibiotic this morning. Patient follow-up in the office and have his Flaherty removed yesterday. Patient states he urinated out half the volume that was placed in the Flaherty catheter prior to removal. Patient has had 2 episodes of urination today since Flaherty catheter has been removed. He denies any pain or suprapubic pressure. Patient denies nausea, vomiting, diarrhea, or cough. at bedside flaherty out & voiding well today (not like I was 18yr old---indicated to pt --unrealistic expectation) abd soft A/P Fever---unknown etiology ?dehydration constipation colace home from standpoint Medications and Allergies Allergies Allergy/AdvReac Type Severity Reaction Status Date / Time No Known Allergies Allergy Verified 02/19/19 14:21 Home Medications Medication Instructions Recorded Confirmed Last Taken Type Finasteride [Proscar] 5 mg PO DAILY 02/19/19 03/10/19 03/03/19 18:00 History Tamsulosin [Flomax] 0.4 mg PO QDAY 02/19/19 03/10/19 03/09/19 History HYDROcodone/APAP 7.5-325 [Hector 1 tab PO Q6HR 03/10/19 03/10/19 03/09/19 History 7.5-325 mg TAB] Sulfamethoxazole/Trimethoprim 1 tab PO BID 03/10/19 03/10/19 03/09/19 History [Bactrim DS TAB] Active Meds: Active Medications Acetaminophen (Tylenol) 650 mg PO Q4H PRN PRN Reason: Fever >101 Finasteride (Proscar) 5 mg PO QDAY [facility] Last Admin: 03/10/19 09:42 Dose: 5 mg Documented by: Sodium Chloride (Nacl 0.9% 1000 Ml) 1,000 mls @ 125 mls/hr IV DIRECT DESTIN Last Admin: 03/10/19 12:28 Dose: 125 mls/hr Documented by: Levofloxacin/Dextrose (Levaquin 750mg/150ml) 750 mg in 150 mls @ 100 mls/hr IV Q24HR [facility]; Protocol Last Admin: 03/10/19 09:37 Dose: 100 mls/hr Documented by: Piperacillin Sod/Tazobactam Sod (Zosyn/Ns 4.5gm/100ml) 4.5 gm in 100 mls @ 200 mls/hr IV Q8HR [facility] Last Admin: 03/10/19 12:28 Dose: 200 mls/hr Documented by: Morphine Sulfate (Morphine) 2 mg IV Q4H PRN PRN Reason: Pain, Moderate (4-6) Ondansetron HCl (Zofran) 4 mg IV Q8H PRN PRN Reason: Nausea And Vomiting Tamsulosin HCl (Flomax) 0.4 mg PO QDAY [facility] Last Admin: 03/10/19 09:42 Dose: 0.4 mg Documented by: Exam - Constitutional Vitals: Temp Pulse Resp BP Pulse Ox 98.7 F 88 18 92/58 98 03/10/19 13:38 03/10/19 13:38 03/10/19 13:38 03/10/19 13:38 03/10/19 13:38 Results - Labs CBC & Chem 7: 03/09/19 17:26 03/09/19 17:26 Labs: Abnormal lab results 03/09/19 03/09/19 03/09/19 Range/Units 17:26 17:26 17:26 Seg Neuts % (Manual) 94.0 H (40.0-70.0) % Lymphocytes % (Manual) 5.0 L (13.4-35.0) % Seg Neutrophils # Man 8.5 H (1.8-7.7) K/mm3 Lymphocytes # (Manual) 0.5 L (1.2-5.4) K/mm3 Sodium 133 L (137-145) mmol/L Lactic Acid 2.20 H* (0.7-2.0) mmol/L Calcium 8.2 L (8.4-10.2) mg/dL Albumin 3.2 L (3.9-5) g/dL Urine pH (5.0-7.0) Urine WBC (Auto) (0.0-6.0) /HPF 09/23/19 Range/Units 20:00 Seg Neuts % (Manual) (40.0-70.0) % Lymphocytes % (Manual) (13.4-35.0) % Seg Neutrophils # Man (1.8-7.7) K/mm3 Lymphocytes # (Manual) (1.2-5.4) K/mm3 Sodium (137-145) mmol/L Lactic Acid (0.7-2.0) mmol/L Calcium (8.4-10.2) mg/dL Albumin (3.9-5) g/dL Urine pH 8.0 H (5.0-7.0) Urine WBC (Auto) 93.0 H (0.0-6.0) /HPF
[2019-03-10] MEDS ORDERED: DOCUSATE SODIUM 100 MG CAP PO ONE (17:36)
[2019-03-10] MEDS ORDERED: FLEET ENEMA PR ONE (17:37)
--- NOTE | 2019-03-10 19:29 | Progress Note ---
Assessment and Plan Assessment and plan: --Sepsis; secondary to urinary tract infection IV fluids, empiric antibiotics, follow cultures, supportive care --Urinary tract infection; empiric antibiotics Follow cultures, supportive care --Febrile illness; secondary to sepsis Antipyretics, IV fluids, IV antibiotics --History of BPH: Status post recent TURP procedure --DVT prophylaxis; Lovenox Follow urine and blood cultures and sensitivities and adjust If patient is a afebrile >24 hours may DC the patient on oral antibiotics History Interval history: Sincerely and examined medical records reviewed Patient feels slightly better, low-grade fever and chills On empiric antibiotics for UTI, and provided after discontinuing Rueda Urology following, cleared for discharge Alert awake oriented 3 Vital signs noted Hospitalist Physical - Constitutional Vitals: Temp Pulse Resp BP Pulse Ox 98.7 F 88 18 92/58 98 03/10/19 13:38 03/10/19 13:38 03/10/19 13:38 03/10/19 13:38 03/10/19 13:38 General appearance: Present: no acute distress, well-nourished - EENT Eyes: Present: PERRL, EOM intact - Neck Neck: Present: supple, normal ROM - Respiratory Respiratory effort: normal Respiratory: bilateral: diminished, negative: rales, rhonchi, wheezing - Cardiovascular Rhythm: regular Heart Sounds: Present: S1 & S2 - Extremities Extremities: no ischemia, No edema - Abdominal General gastrointestinal: soft, non-tender, non-distended, normal bowel sounds - Integumentary Integumentary: Present: clear, warm - Psychiatric Psychiatric: appropriate mood/affect, cooperative - Neurologic Neurologic: CNII-XII intact, moves all extremities Results - Labs CBC & Chem 7: 03/09/19 17:26 03/09/19 17:26 Labs: Laboratory Last Values WBC 9.0 K/mm3 (4.5-11.0) 03/09/19 17: RBC 4.19 M/mm3 (3.65-5.03) 03/09/19 17:26 Hgb 11.9 gm/dl (11.8-15.2) 03/09/19 17:26 Hct 36.0 % (35.5-45.6) 03/09/19 17: MCV 86 fl (84-94) 03/09/19 17:26 MCH 29 pg (28-32) 03/09/19 17:26 MCHC 33 % (32-34) 03/09/19 17:26 RDW 14.1 % (13.2-15.2) 03/09/19 17:26 Plt Count 258 K/mm3 (140-440) 03/09/19 17:26 Add Manual Diff Complete 03/09/19 17:26 Total Counted 100 03/09/19 17:26 Seg Neutrophils % Legal Technician 03/09/19 17:26 Seg Neuts % (Manual) 94.0 % (40.0-70.0) H 03/09/19 17:26 0 % 03/09/19 17:26 5.0 % (13.4-35.0) L 03/09/19 17:26 Reactive Lymphs % (Man) 0 % 03/09/19 17:26 1.0 % (0.0-7.3) 03/09/19 17:26 0 % (0.0-4.3) 03/09/19 17:26 0 % (0.0-1.8) 03/09/19 17:26 0 % 03/09/19 17:26 0 % 03/09/19 17:26 0 % 03/09/19 17:26 0 % 03/09/19 17:26 Nucleated RBC % Not Reportable 03/09/19 17:26 Seg Neutrophils # Man 8.5 K/mm3 (1.8-7.7) H 03/09/19 17:26 Band Neutrophils # 0.0 K/mm3 03/09/19 17:26 0.5 K/mm3 (1.2-5.4) L 03/09/19 17:26 Abs React Lymphs (Man) 0.0 K/mm3 03/09/19 17:26 0.1 K/mm3 (0.0-0.8) 03/09/19 17:26 0.0 K/mm3 (0.0-0.4) 03/09/19 17:26 0.0 K/mm3 (0.0-0.1) 03/09/19 17:26 0.0 K/mm3 03/09/19 17:26 0.0 K/mm3 03/09/19 17:26 0.0 K/mm3 03/09/19 17:26 Blast Cells # 0.0 K/mm3 03/09/19 17:26 WBC Morphology Not Reportable 03/09/19 17:26 Hypersegmented Neuts Not Reportable 03/09/19 17:26 Hyposegmented Neuts Not Reportable 03/09/19 17:26 Hypogranular Neuts Not Reportable 03/09/19 17:26 Not Reportable 03/09/19 17:26 Not Reportable 03/09/19 17:26 Not Reportable 03/09/19 17:26 Not Reportable 03/09/19 17:26 Not Reportable 03/09/19 17:26 Not Reportable 03/09/19 17:26 Consistent w auto 03/09/19 17:26 Not Reportable 03/09/19 17:26 Plt Clumps, EDTA Not Reportable 03/09/19 17:26 1+ 03/09/19 17:26 Not Reportable 03/09/19 17:26 Not Reportable 03/09/19 17:26 Plt Morphology Comment Not Reportable 03/09/19 17:26 RBC Morphology Normal 03/09/19 17:26 Dimorphic RBCs Not Reportable 03/09/19 17:26 Not Reportable 03/09/19 17:26 Not Reportable 03/09/19 17:26 Not Reportable 03/09/19 17:26 Not Reportable 03/09/19 17:26 Not Reportable 03/09/19 17:26 Not Reportable 03/09/19 17:26 Not Reportable 03/09/19 17:26 Not Reportable 03/09/19 17:26 Not Reportable 03/09/19 17:26 Not Reportable 03/09/19 17:26 Not Reportable 03/09/19 17:26 Not Reportable 03/09/19 17:26 Not Reportable 03/09/19 17:26 Not Reportable 03/09/19 17:26 Not Reportable 03/09/19 17:26 Not Reportable 03/09/19 17:26 Not Reportable 03/09/19 17:26 Not Reportable 03/09/19 17:26 Not Reportable 03/09/19 17:26 Acanthocytes (Spur) Not Reportable 03/09/19 17:26 Rouleaux Not Reportable 03/09/19 17:26 Not Reportable 03/09/19 17:26 Not Reportable 03/09/19 17:26 Not Reportable 03/09/19 17:26 Not Reportable 03/09/19 17:26 Hem Pathologist Commnt No 03/09/19 17:26 PT 13.7 Sec. (12.2-14.9) 03/09/19 17:26 INR 1.08 (0.87-1.13) 03/09/19 17:26 VBG pH 7.419 (7.320-7.420) 03/09/19 17:26 Sodium 133 mmol/L (137-145) L 03/09/19 17:26 Potassium 4.8 mmol/L (3.6-5.0) 03/09/19 17:26 Chloride 101.1 mmol/L (98-107) 03/09/19 17:26 Carbon Dioxide 22 mmol/L (22-30) 03/09/19 17:26 15 mmol/L 03/09/19 17:26 BUN 14 mg/dL (9-20) 03/09/19 17:26 1.2 mg/dL (0.8-1.5) 03/09/19 17:26 Estimated GFR > 60 ml/min 03/09/19 17:26 12 % 03/09/19 17:26 Glucose 95 mg/dL (75-100) 03/09/19 17:26 Lactic Acid 1.90 mmol/L (0.7-2.0) 03/09/19 19:41 Calcium 8.2 mg/dL (8.4-10.2) L 03/09/19 17:26 0.30 mg/dL (0.1-1.2) 03/09/19 17:26 AST 23 units/L (5-40) 03/09/19 17:26 ALT 13 units/L (7-56) 03/09/19 17:26 54 units/L (35-129) 03/09/19 17:26 6.9 g/dL (6.3-8.2) 03/09/19 17:26 3.2 g/dL (3.9-5) L 03/09/19 17:26 0.9 % 03/09/19 17:26 Red (Yellow) 03/09/19 20:00 Cloudy (Clear) 03/09/19 20:00 8.0 (5.0-7.0) H 03/09/19 20:00 Ur Specific [place] 1.013 (1.003-1.030) 03/09/19 20:00 100 mg/dl mg/dL (Negative) 03/09/19 20:00 50 mg/dL (Negative) 03/09/19 20:00 Tr mg/dL (Negative) 03/09/19 20:00 Lg (Negative) 03/09/19 20:00 Neg (Negative) 03/09/19 20:00 Neg (Negative) 03/09/19 20:00 < 2.0 mg/dL (<2.0) 03/09/19 20:00 Ur Leukocyte Esterase Mod (Negative) 03/09/19 20:00 93.0 /HPF (0.0-6.0) H 03/09/19 20:00 > 182.0 /HPF (0.0-6.0) 03/09/19 20:00 Active Medications - Current Medications Current Medications: Generic Name Dose Route Start Last Admin Trade Name Freq PRN Reason Stop Dose Admin Acetaminophen 650 mg 03/09/19 23:13 Tylenol PO Q4H PRN Fever >101 Finasteride 5 mg 03/10/19 10:00 03/10/19 09:42 Proscar PO 5 mg QDAY DESTIN Administration Sodium Chloride 1,000 mls @ 125 mls/hr 03/09/19 23:45 03/10/19 12:28 Nacl 0.9% 1000 Ml IV 125 mls/hr DIRECT DESTIN Administration Levofloxacin/Dextrose 750 mg in 150 mls @ 100 mls/hr 03/10/19 10:00 03/10/19 09:37 Levaquin 750mg/150ml IV 100 mls/hr Q24HR DESTIN Administration Protocol Piperacillin Sod/Tazobactam Sod 4.5 gm in 100 mls @ 200 mls/hr 03/10/19 12:00 03/10/19 12:28 Zosyn/Ns 4.5gm/100ml IV 200 mls/hr Q8HR DESTIN Administration Morphine Sulfate 2 mg 03/10/19 04:36 Morphine IV Q4H PRN Pain, Moderate (4-6) Ondansetron HCl 4 mg 03/09/19 23:14 Zofran IV Q8H PRN Nausea And Vomiting Tamsulosin HCl 0.4 mg 03/10/19 10:00 03/10/19 09:42 Flomax PO 0.4 mg QDAY DESTIN Administration
[2019-03-10] MEDS: ACETAMINOPHEN 325 MG TAB PO PRN (22:15)
[2019-03-11] MEDS: ACETAMINOPHEN 325 MG TAB PO PRN ×2 (04:57→17:21)
[2019-03-11 05:53] LABS: BUN/Creatinine Ratio 13; Blood Urea Nitrogen 16 mg/dL (9-20); Calcium 7.3 mg/dL (8.4-10.2); Hemolysis Index 1
[2019-03-11] MEDS: PIPERACIL/TAZOBACTA 4.5/NS 100 4.5 GM/100 ML VIAL IV SCH (06:14)
[2019-03-11] MEDS: SODIUM CHLORIDE 0.9% 1000 ML 1,000 ML IV SCH ×2 (07:15→17:23)
[2019-03-11] MEDS: TAMSULOSIN 0.4 MG CAP PO SCH (09:24)
[2019-03-11] MEDS: FINASTERIDE 5 MG TAB PO SCH (09:24)
[2019-03-11] MEDS: BACITRACIN/POLYMYXIN B OINT 28.35 GM TP SCH ×2 (11:33→22:56)
--- NOTE | 2019-03-11 16:03 | Progress Note ---
Assessment and Plan Assessment and plan: --Sepsis; secondary to urinary tract infection IV fluids, empiric antibiotics, follow cultures, supportive care --ESBL; UTI Contact isolation, meropenem, already on Zosyn DC Levaquin, ID consult --Febrile illness; secondary to sepsis, afebrile Antipyretics, IV fluids, IV antibiotics --History of BPH: Status post recent TURP procedure --DVT prophylaxis; Lovenox Follow ID evaluation and recommendations Monitor closely and adjust the management as needed History Interval history: Patient seen and examined medical records reviewed Patient renal Escherichia coli ESBL, placed on contact isolation Patient afebrile, in mild distress Vital signs noted Hospitalist Physical - Constitutional Vitals: Temp Pulse Resp BP Pulse Ox 98.9 F 81 18 97/67 98 03/11/19 13:53 03/11/19 13:53 03/11/19 13:53 03/11/19 13:53 03/11/19 13:53 General appearance: Present: mild distress, well-nourished - EENT Eyes: Present: PERRL, EOM intact - Neck Neck: Present: supple, normal ROM - Respiratory Respiratory effort: normal Respiratory: negative: rales, rhonchi, wheezing - Cardiovascular Rhythm: regular Heart Sounds: Present: S1 & S2 - Extremities Extremities: no ischemia, No edema - Abdominal General gastrointestinal: soft, non-tender, non-distended, normal bowel sounds - Integumentary Integumentary: Present: clear, warm - Psychiatric Psychiatric: appropriate mood/affect, cooperative - Neurologic Neurologic: CNII-XII intact, moves all extremities Results - Labs CBC & Chem 7: 03/09/19 17:26 03/11/19 04:57 Labs: Laboratory Last Values WBC 9.0 K/mm3 (4.5-11.0) 03/09/19 17: RBC 4.19 M/mm3 (3.65-5.03) 03/09/19 17: Hgb 11.9 gm/dl (11.8-15.2) 03/09/19 17: Hct 36.0 % (35.5-45.6) 03/09/19 17: MCV 86 fl (84-94) 03/09/19 17: MCH 29 pg (28-32) 03/09/19 17: MCHC 33 % (32-34) 03/09/19 17: RDW 14.1 % (13.2-15.2) 03/09/19 17:26 Plt Count 258 K/mm3 (140-440) 03/09/19 17:26 Add Manual Diff Complete 03/09/19 17:26 Total Counted 100 03/09/19 17:26 Seg Neutrophils % Production Trainer 03/09/19 17:26 Seg Neuts % (Manual) 94.0 % (40.0-70.0) H 03/09/19 17:26 0 % 03/09/19 17:26 5.0 % (13.4-35.0) L 03/09/19 17:26 Reactive Lymphs % (Man) 0 % 03/09/19 17: 1.0 % (0.0-7.3) 03/09/19 17:26 0 % (0.0-4.3) 03/09/19 17:26 0 % (0.0-1.8) 03/09/19 17:26 0 % 03/09/19 17:26 0 % 03/09/19 17:26 0 % 03/09/19 17:26 0 % 03/09/19 17:26 Nucleated RBC % Not Reportable 03/09/19 17:26 Seg Neutrophils # Man 8.5 K/mm3 (1.8-7.7) H 03/09/19 17:26 Band Neutrophils # 0.0 K/mm3 03/09/19 17:26 0.5 K/mm3 (1.2-5.4) L 03/09/19 17:26 Abs React Lymphs (Man) 0.0 K/mm3 03/09/19 17:26 0.1 K/mm3 (0.0-0.8) 03/09/19 17:26 0.0 K/mm3 (0.0-0.4) 03/09/19 17: 0.0 K/mm3 (0.0-0.1) 03/09/19 17:26 0.0 K/mm3 03/09/19 17:26 0.0 K/mm3 03/09/19 17:26 0.0 K/mm3 03/09/19 17:26 Blast Cells # 0.0 K/mm3 03/09/19 17:26 WBC Morphology Not Reportable 03/09/19 17:26 Hypersegmented Neuts Not Reportable 03/09/19 17:26 Hyposegmented Neuts Not Reportable 03/09/19 17:26 Hypogranular Neuts Not Reportable 03/09/19 17:26 Not Reportable 03/09/19 17:26 Not Reportable 03/09/19 17:26 Not Reportable 03/09/19 17:26 Not Reportable 03/09/19 17:26 Not Reportable 03/09/19 17:26 Not Reportable 03/09/19 17:26 Consistent w auto 03/09/19 17:26 Not Reportable 03/09/19 17:26 Plt Clumps, EDTA Not Reportable 03/09/19 17:26 1+ 03/09/19 17:26 Not Reportable 03/09/19 17:26 Not Reportable 03/09/19 17:26 Plt Morphology Comment Not Reportable 03/09/19 17:26 RBC Morphology Normal 03/09/19 17:26 Dimorphic RBCs Not Reportable 03/09/19 17:26 Not Reportable 03/09/19 17:26 Not Reportable 03/09/19 17:26 Not Reportable 03/09/19 17:26 Not Reportable 03/09/19 17:26 Not Reportable 03/09/19 17:26 Not Reportable 03/09/19 17:26 Not Reportable 03/09/19 17:26 Not Reportable 03/09/19 17:26 Not Reportable 03/09/19 17:26 Not Reportable 03/09/19 17:26 Not Reportable 03/09/19 17:26 Not Reportable 03/09/19 17:26 Not Reportable 03/09/19 17:26 Not Reportable 03/09/19 17:26 Not Reportable 03/09/19 17:26 Not Reportable 03/09/19 17:26 Not Reportable 03/09/19 17:26 Not Reportable 03/09/19 17:26 Not Reportable 03/09/19 17:26 Acanthocytes (Spur) Not Reportable 03/09/19 17:26 Rouleaux Not Reportable 03/09/19 17:26 Not Reportable 03/09/19 17:26 Not Reportable 03/09/19 17:26 Not Reportable 03/09/19 17:26 Not Reportable 03/09/19 17:26 Hem Pathologist Commnt No 03/09/19 17:26 PT 13.7 Sec. (12.2-14.9) 03/09/19 17:26 INR 1.08 (0.87-1.13) 03/09/19 17:26 VBG pH 7.419 (7.320-7.420) 03/09/19 17:26 Sodium 138 mmol/L (137-145) 03/11/19 04:57 Potassium 4.1 mmol/L (3.6-5.0) 03/11/19 04:57 Chloride 105.3 mmol/L (98-107) 03/11/19 04:57 Carbon Dioxide 20 mmol/L (22-30) L 03/11/19 04:57 17 mmol/L 03/11/19 04:57 BUN 16 mg/dL (9-20) 03/11/19 04:57 1.2 mg/dL (0.8-1.5) 03/11/19 04:57 Estimated GFR > 60 ml/min 03/11/19 04:57 13 % 03/11/19 04:57 Glucose 100 mg/dL (75-100) 03/11/19 04:57 Lactic Acid 1.90 mmol/L (0.7-2.0) 03/09/19 19:41 Calcium 7.3 mg/dL (8.4-10.2) L 03/11/19 04:57 0.30 mg/dL (0.1-1.2) 03/09/19 17:26 AST 23 units/L (5-40) 03/09/19 17:26 ALT 13 units/L (7-56) 03/09/19 17:26 54 units/L (35-129) 03/09/19 17:26 6.9 g/dL (6.3-8.2) 03/09/19 17:26 3.2 g/dL (3.9-5) L 03/09/19 17:26 0.9 % 03/09/19 17:26 Red (Yellow) 03/09/19 20:00 Cloudy (Clear) 03/09/19 20:00 8.0 (5.0-7.0) H 03/09/19 20:00 Ur Specific [place] 1.013 (1.003-1.030) 03/09/19 20:00 100 mg/dl mg/dL (Negative) 03/09/19 20:00 50 mg/dL (Negative) 03/09/19 20:00 Tr mg/dL (Negative) 03/09/19 20:00 Lg (Negative) 03/09/19 20:00 Neg (Negative) 03/09/19 20:00 Neg (Negative) 03/09/19 20:00 < 2.0 mg/dL (<2.0) 03/09/19 20:00 Ur Leukocyte Esterase Mod (Negative) 03/09/19 20:00 93.0 /HPF (0.0-6.0) H 03/09/19 20:00 > 182.0 /HPF (0.0-6.0) 03/09/19 20:00 Active Medications - Current Medications Current Medications: Generic Name Dose Route Start Last Admin Trade Name Freq PRN Reason Stop Dose Admin Acetaminophen 650 mg 03/09/19 23:13 03/11/19 04:57 Tylenol PO 650 mg Q4H PRN Administration Fever >101 Bacitracin/Polymyxin B Sulfate 1 applic 03/11/19 12:00 03/11/19 11:33 Polysporin TP 1 applic BID DESTIN Administration Finasteride 5 mg 03/10/19 10:00 03/11/19 09:24 Proscar PO 5 mg QDAY DESTIN Administration Sodium Chloride 1,000 mls @ 125 mls/hr 03/09/19 23:45 03/11/19 07:15 Nacl 0.9% 1000 Ml IV 125 mls/hr DIRECT DESTIN Administration Levofloxacin/Dextrose 750 mg in 150 mls @ 100 mls/hr 03/10/19 10:00 03/11/19 09:24 Levaquin 750mg/150ml IV 100 mls/hr Q24HR DESTIN Administration Protocol Morphine Sulfate 2 mg 03/10/19 04:36 03/10/19 22:50 Morphine IV 2 mg Q4H PRN Administration Pain, Moderate (4-6) Ondansetron HCl 4 mg 03/09/19 23:14 Zofran IV Q8H PRN Nausea And Vomiting Tamsulosin HCl 0.4 mg 03/10/19 10:00 03/11/19 09:24 Flomax PO 0.4 mg QDAY DESTIN Administration
[2019-03-11] MEDS: HYDROcodone/ACETAMINOPHEN 5-325 MG TAB PO PRN (23:05)
[2019-03-12] MEDS: SODIUM CHLORIDE 0.9% 1000 ML 1,000 ML IV SCH ×2 (01:00→14:13)
[2019-03-12] MEDS: ACETAMINOPHEN 325 MG TAB PO PRN ×2 (02:19→22:19)
[2019-03-12] MEDS ORDERED: PIPERACIL/TAZOBACTA 4.5/NS 100 4.5 GM/100 ML VIAL IV SCH (09:00)
[2019-03-12] MEDS: TAMSULOSIN 0.4 MG CAP PO SCH (09:33)
[2019-03-12] MEDS: FINASTERIDE 5 MG TAB PO SCH (09:33)
[2019-03-12] MEDS: BACITRACIN/POLYMYXIN B OINT 28.35 GM TP SCH ×2 (09:40→22:09)
--- NOTE | 2019-03-12 12:12 | Consultation ---
History of Present Illness - Reason for Consult Consult date: 03/12/19 ESBL E.coli Requesting physician: OLIVERIO HUFF - History of Present Illness The patient is a 73-year-old male with BPH who recently underwent a TURP procedure and was discharged home. He followed up in the urology clinic and had his Rueda removed. About 1-2 hours later, he started developing fever with chills. Hence he returned to the hospital ED, was noted to have concerns for sepsis and hospitalized. Empiric antibiotics were initiated. Blood cultures have grown ESBL producing Escherichia coli, infectious diseases was consulted for additional antibiotic recommendations. Currently, he is afebrile. Denies any nausea, vomiting. Denies any urinary burning. Denies any issues with voi ding urine. Review of Systems: General: no fevers,chills or rigors at present HEENT: no new visual disturbance Respiratory: No cough, sputum, hemoptysis or shortness of breath Cardiovascular: No chest pain, syncope Gastrointestinal: No nausea, vomiting or diarrhea Genitourinary: No dysuria or hematuria Musculoskeletal: No new or worsening neck pain or back pain Neurologic: No headaches, seizures Hematologic: No easy bruising or bleeding Endocrine: No night sweats or acute weight loss Skin: negative for rash, jaundice Psychiatric: No suicidal or homicidal ideation Medications and Allergies Allergies Allergy/AdvReac Type Severity Reaction Status Date / Time No Known Allergies Allergy Verified 02/19/19 14:21 Home Medications Medication Instructions Recorded Confirmed Last Taken Type Finasteride [Proscar] 5 mg PO DAILY 02/19/19 03/10/19 03/03/19 18:00 History Tamsulosin [Flomax] 0.4 mg PO QDAY 02/19/19 03/10/19 03/09/19 History HYDROcodone/APAP 7.5-325 [[place] 1 tab PO Q6HR 03/10/19 03/10/19 03/09/19 History 7.5-325 mg TAB] Sulfamethoxazole/Trimethoprim 1 tab PO BID 03/10/19 03/10/19 03/09/19 History [Bactrim DS TAB] Active Meds: Active Medications Acetaminophen (Tylenol) 650 mg PO Q4H PRN PRN Reason: Fever >101 Last Admin: 03/12/19 02:19 Dose: 650 mg Documented by: Acetaminophen/Hydrocodone Bitart ([place] 5/325) 1 each PO Q6H PRN PRN Reason: Pain, Moderate (4-6) Last Admin: 03/11/19 23:05 Dose: 1 each Documented by: Bacitracin/Polymyxin B Sulfate (Polysporin) 1 applic TP BID [facility] Last Admin: 03/12/19 09:40 Dose: Not Given Documented by: Finasteride (Proscar) 5 mg PO QDAY [facility] Last Admin: 03/12/19 09:33 Dose: 5 mg Documented by: Sodium Chloride (Nacl 0.9% 1000 Ml) 1,000 mls @ 125 mls/hr IV DIRECT [facility] Last Admin: 03/12/19 01:00 Dose: 125 mls/hr Documented by: Piperacillin Sod/Tazobactam Sod (Zosyn/Ns 4.5gm/100ml) 4.5 gm in 100 mls @ 200 mls/hr IV Q8HR [facility]; Protocol Last Admin: 03/12/19 09:33 Dose: 200 mls/hr Documented by: Meropenem (Merrem/Ns 500 Mg/50 Ml) 500 mg in 50 mls @ 50 mls/hr IV Q6H [facility] Morphine Sulfate (Morphine) 2 mg IV Q4H PRN PRN Reason: Pain, Moderate (4-6) Last Admin: 03/10/19 22:50 Dose: 2 mg Documented by: Ondansetron HCl (Zofran) 4 mg IV Q8H PRN PRN Reason: Nausea And Vomiting Tamsulosin HCl (Flomax) 0.4 mg PO QDAY [facility] Last Admin: 03/12/19 09:33 Dose: 0.4 mg Documented by: Physical Examination - Physical Exam Narrative exam: Physical Exam: Constitutional: Alert, cooperative. No acute distress Head, Ears, Nose: Normocephalic, atraumatic. External ears, nose normal Eyes: Conjunctivae/corneas clear. No icterus. No ptosis. Neck: Supple, no meningeal signs Oral: dentition fair, no thrush Cardiovascular: S1, S2 normal. Respiratory: Good air entry, clear to auscultation bilaterally GI: Soft, non-tender; bowel sounds normal. No peritoneal signs. No CVA tenderness, no suprapubic tenderness Musculoskeletal: No pedal edema, no cyanosis. Skin: No rash or abscess Hem/Lymphatic: No palpable cervical or supraclavicular nodes. No lymphangitis Psych: Mood ok. Affect normal Neurological: Awake, alert, oriented. No gross abnormality - Constitutional Vitals: Vital Signs Temp Pulse Resp BP Pulse Ox 98.3 F 75 18 120/72 99 03/12/19 08:28 03/12/19 08:28 03/12/19 08:28 03/12/19 08:28 03/12/19 08:28 Temperature -Last 24 Hours Temperature 98.3 F Temperature 98.8 F Temperature 99.1 F Temperature 98.9 F Results - Labs CBC & Chem 7: 03/09/19 17:26 03/11/19 04:57 - Imaging and Cardiology Chest x-ray: report reviewed, image reviewed (Chest x-ray shows no evidence of pneumonia.) Assessment and Plan Cultures: 03/09/2019 blood culture: ESBL producing Escherichia coli 03/09/2019 urine culture: ESBL producing Escherichia coli A/P: 73-year-old male with BPH who recently underwent a TURP procedure admitted with: 1) Sepsis, secondary to Escherichia coli bacteremia, urinary tract infection: Patient is status post TURP procedure and likely developed bacterial translocation following Rueda catheter removal. He was on prophylaxis with Bactrim, which the Escherichia coli isolated is resistant to. Clinically stable. Start IV meropenem, will insert midline and initiated outpatient IV ertapenem to complete a total of 10 days. 2) BPH: status post TURP procedure. Urology following. Recs: Discontinue Zosyn IV meropenem started We ordered midline and OPAT orders placed for IV Ertapenem ending 03/22/2019 Repeat blood cultures are not needed since this is urinary source and patient is improving clinically OK to discharge from ID standpoint once abx are arranged Plan discussed with patient and his at bedside who are agreeable. D/W Dr. Huff. Ferdinand Celaya MD, FACP [facility] ([facility] C: [phone] O: [phone] F: [phone]
[2019-03-12] MEDS: MEROPENEM/NS 500 MG/50 ML 500 MG/50 ML BAG IV SCH ×2 (15:34→22:02)
[2019-03-12] MEDS: HYDROcodone/ACETAMINOPHEN 5-325 MG TAB PO PRN (22:19)
[2019-03-13] MEDS: MEROPENEM/NS 500 MG/50 ML 500 MG/50 ML BAG IV SCH ×2 (02:40→08:50)
[2019-03-13] MEDS: SODIUM CHLORIDE 0.9% 1000 ML 1,000 ML IV SCH (02:40)
[2019-03-13 08:36] VITALS: BP 118/69
[2019-03-13] MEDS: FINASTERIDE 5 MG TAB PO SCH (09:47)
[2019-03-13] MEDS: TAMSULOSIN 0.4 MG CAP PO SCH (09:47)
[2019-03-13] MEDS: HYDROcodone/ACETAMINOPHEN 5-325 MG TAB PO PRN (09:57)
[2019-03-13] MEDS: BACITRACIN/POLYMYXIN B OINT 28.35 GM TP SCH (10:01)
--- NOTE | 2019-03-13 12:33 | Progress Note ---
Assessment and Plan Cultures: 03/09/2019 blood culture: ESBL producing Escherichia coli 03/09/2019 urine culture: ESBL producing Escherichia coli A/P: 73-year-old male with BPH who recently underwent a TURP procedure admitted with: 1) Sepsis, secondary to Escherichia coli bacteremia, urinary tract infection: Patient is status post TURP procedure and likely developed bacterial translocation following Rueda catheter removal. He was on prophylaxis with Bactrim, which the Escherichia coli isolated is resistant to. Clinically stable and improving with Meropenem. 2) BPH: status post TURP procedure. Urology following. Recs: Continue meropenem while inpt, d/c on IV Ertapenem 1 gm daily ending 03/22/2019 OK to discharge from ID standpoint. D/w Case management, patient will be going to rehab for IV abx Ferdinand Celaya MD, FACP [facility] ([facility]) C: [phone] O: [phone] F: [phone] Subjective Date of service: 03/13/19 Interval history: No fever. Got midline placed. Feels well. No nausea, vomiting. No urinary complaints. Objective - Exam Narrative Exam: Physical Exam: Constitutional: Alert, cooperative. No acute distress Head, Ears, Nose: Normocephalic, atraumatic. External ears, nose normal Eyes: Conjunctivae/corneas clear. No icterus. No ptosis. Neck: Supple, no meningeal signs Oral: dentition fair, no thrush Cardiovascular: S1, S2 normal. Respiratory: Good air entry, clear to auscultation bilaterally GI: Soft, non-tender; bowel sounds normal. No peritoneal signs. No CVA tenderness, no suprapubic tenderness Musculoskeletal: No pedal edema, no cyanosis. Left arm midline + Skin: No rash or abscess Hem/Lymphatic: No palpable cervical or supraclavicular nodes. No lymphangitis Psych: Mood ok. Affect normal Neurological: Awake, alert, oriented. No gross abnormality - Constitutional Vitals: Vital Signs Temp Pulse Resp BP Pulse Ox 98.7 F 68 18 118/69 100 03/13/19 07:51 03/13/19 10:00 03/13/19 10:00 03/13/19 07:51 03/13/19 10:00 Temperature -Last 24 Hours Temperature 98.7 F Temperature 98.2 F Temperature 98.6 F Temperature 98.7 F - Labs CBC & Chem 7: 03/09/19 17:26 03/11/19 04:57
--- NOTE | 2019-03-13 13:00 | Discharge Summary ---
Providers - Providers Date of Admission: 03/09/19 23:09 Date of discharge: 03/13/19 Attending physician: OLIVERIO HUFF 03/09/19 21:39 Consult to Physician [CONS] Urgent Comment: Dr. Munoz spoke with Dr. Pollock @ 1001 Consulting Provider: MIGUEL POLLOCK Physician Instructions: Reason For Exam: fever after flaherty removed 03/12/19 07:18 Consult to Physician [CONS] Routine Comment: Consulting Provider: CON VICKERS Physician Instructions: Reason For Exam: ESBL UTI,multidrug resistance/choice of Abx 03/12/19 12:13 Consult to Case Management [CONS] Stat Services Needed at Discharge: Other Notified:: no Additional Physician Instructions: [facility] ([facility] O: [phone] F: [phone] OUTPATIENT PARENTERAL ANTIBIOTIC THERAPY (OPAT) ORDERS Diagnoses: ESBL E.coli bacteremia, Sepsis Antimicrobial administration: IV Ertapenem 1 gm q24 hrs ending 03/22/2019 - Remove midline after last dose unless otherwise instructed. Lines: Maintain IV access with weekly dressing changes and locks per protocol. Lab monitoring: - CBC with differential, Creatinine, ALT, AST once a week every Saturday while on IV antibiotics. Please fax results to [phone] and call [phone] for critical lab results. MD [facility] Consult to PICC Line RN [CONS] Stat Reason For Exam: Midline for IV abx Type Line:: Midline Primary care physician: G[employer]ATOR Hospitalization Reason for admission: Fever chills/UTI Condition: Stable Pertinent studies: CXR Hospital course: 73-year-old male patient was admittede to the hospital complaining of fever and chills/Rigors times one day. Patient has a history of BPH and recently had a TURP procedure done and was discharged from the hospital 2 days ago. Patient was discharged on Bactrim and [place] while in the hospital. Last dose of antibiotic was finished and had follow-up in the office and had his Flaherty removed yesterday. Patient states he urinated out half the volume that was placed in the Flaherty catheter prior to removal.The patient was noted to have urinary tract infection with ESBL URINE and ESBL bacteremia ID evaluated the patient placed on meropenem, recommend total 10 days of ertapenem ending on 03/22/2019 Case management has set up SNF/rehabilitation placement. The patient is comfortable,no new complaints ,vital signs stablecomplaints Vital signs stable,Physical examination prior to discharge is unremarkable Advised to continue contact isolation After discharge from SNF rehabilitation Patient will follow up with urology and ID, primary care physician per scheduled Discharge Diagnosis: --Sepsis; secondary to urinary tract infection IV fluids, empiric antibiotics, follow cultures, supportive care --ESBL; UTI Contact isolation,on meropenem, ID recommend IV Ertapenem ending on 03/22/2019 --ESBL Bacteremia:on IV Merropenem DC on IV Ertapenem for total 10 days --Febrile illness; secondary to sepsis, afebrile Antipyretics, IV fluids, IV antibiotics --History of BPH: Status post recent TURP procedure --DVT prophylaxis; Lovenox Stable for discharge and transfer to SNF/Rehab today Disposition: DC/[place]-03 SNF [facility] Time spent for discharge: 32 min Core Measure Documentation - Palliative Care Palliative Care/ Comfort Measures: Not Applicable - Core Measures Any of the following diagnoses?: none Exam - Constitutional Vitals: Temp Pulse Resp BP Pulse Ox 98.7 F 68 18 118/69 100 03/13/19 07:51 03/13/19 10:00 03/13/19 10:00 03/13/19 07:51 03/13/19 10:00 General appearance: Present: no acute distress, well-nourished - EENT Eyes: Present: PERRL, EOM intact - Neck Neck: Present: supple, normal ROM - Respiratory Respiratory effort: normal Respiratory: bilateral: diminished, negative: rales, rhonchi - Cardiovascular Rhythm: regular Heart Sounds: Present: S1 & S2 - Extremities Extremities: no ischemia, No edema - Abdominal General gastrointestinal: Present: soft, non-tender, non-distended, normal bowel sounds - Integumentary Integumentary: Present: clear, warm - Musculoskeletal Musculoskeletal: strength equal bilaterally - Psychiatric Psychiatric: appropriate mood/affect, cooperative - Neurologic Neurologic: CNII-XII intact, moves all extremities Plan Activity: advance as tolerated Diet: regular Additional Instructions: ID advised IV Ertapenem 1 gm daily ending 03/22/2019. Contact isolation Follow up with: PRIMARY CAREMD [Primary Care Provider] - 3-5 Days CON VICKERS MD [Staff Physician] - 04/13/19 MORENITA FIGUEROA MD [Staff Physician] - 04/13/19 Prescriptions: RX: Ertapenem [INVanz] 1 gm IV QDAY #10 vial RX: HYDROcodone/APAP 7.5-325 [[place] 7.5-325 mg TAB] 1 tab PO Q6HR #20 tablet RX: Bacitracin/Polymixin B [Polysporin] 1 applic TP BID #1 tube
== END 2019-03-13 13:40 | DRG 872 ==
LOC: ED 17:01 → 2B-ACE 23:09
PROVIDERS: ADMIT Internal Medicine; ATTEND Internal Medicine
PROC: 05HY33Z Insertion of Infusion Device into Upper Vein, Percutaneous Approach (ICD-10-PCS; principal; 2019-03-12)
DX: A41.51 Sepsis due to Escherichia coli [E. coli] (principal); N39.0 Urinary tract infection, site not specified; N40.0 Benign prostatic hyperplasia without lower urinary tract symptoms; Z79.899 Other long term (current) drug therapy
CPT/HCPCS: 36415; 71045; 80048; 80053; 81001; 82140; 82805; 85007; 85025; 85610; 87040; 87076; 87086; 87116; 87186; 93005; 93010; G0378; J0696; J1956; J2185; J2270; J2543; J7030